=== PATIENT | female | born 1965 | race Caucasian/White ===

== ENCOUNTER 2024-10-17 19:33 | Emergency (ER) | payer MEDICAID ==
[~2024-10-17] VITALS: Ht 162.6 cm; Wt 64.9 kg
[2024-10-17 19:35] VITALS: BP 147/87; PULSE 92; RESP 18; TEMP 98; O2SAT 95
[2024-10-17 19:55] LABS: BASOPHIL % 0.3 % (0.1-1.2); EOSINOPHIL # 0.1 10^3/uL (0.0-0.2); EOSINOPHIL % 0.7 % (0.0-5.0); HEMATOCRIT(ML) 39.4 % (36.0-46.0); HEMOGLOBIN 13.4 g/dL (12.0-15.0); LYMPHOCYTES # 0.57 10^3/uL1 (1.0-4.8); LYMPHOCYTES % 8.5 % (24.0-44.0); MEAN CORP HGB 31.3 pg (26-34); MEAN CORP VOLUME 92.1 fL (78-100); MONOCYTES # 0.5 10^3/uL (0.3-0.8); MONOCYTES % 7.2 % (5.0-12.0); NEUTROPHIL # 5.6 10^3/uL (1.8-7.7); NEUTROPHILS % 83.2 % (41.0-85.0); PLATELET COUNT 165 10^3/uL (150-400); RED BLOOD CELL 4.28 10^6/uL (4.00-5.20); RED CELL DISTRIBUTION WIDTH 12.1 % (11.5-14.5); WHITE BLOOD CELL 6.7 10^3/uL (4.5-11.0)
[2024-10-17 19:56] LABS: +ADD MANUAL DIFF(NO CHRG) NO
[2024-10-17 20:03] LABS: LEUKOCYTE ESTERASE ,URINE NEGATIVE (NEGATIVE); NITRATE,URINE NEGATIVE (NEGATIVE); PH,URINE 5.5 (4.5-8.0); UROBILINOGEN,URINE 0.2 E.U./dL (0.2)
[2024-10-17 20:09] LABS: PROTHROMBIN PROTIME 10.3 SEC (9.3-11.6)
[2024-10-17 20:11] LABS: APPEARANCE,URINE CLEAR; UA COLOR YELLOW
[2024-10-17 20:11] LABS: ALBUMIN(ML) 3.1 g/dL (3.4-5.0); ALBUMIN/GLOBULIN RATIO 0.885; ANION GAP 14.7; BUN/CREATININE RATIO 11.32 (10.0-20.0); CARBON DIOXIDE 23.7 mmol/L (20.0-32); CREATININE SERUM 1.06 mg/dL (0.59-1.40); EST GFR, NON-AA 53.4 (>/=60); POTASSIUM 4.4 mmol/L (3.6-5.2)
[2024-10-17 20:30] VITALS: BP 132/84; PULSE 76; RESP 18; TEMP 98; O2SAT 97
[2024-10-17 21:35] VITALS: BP 135/86; PULSE 80; RESP 18; TEMP 98; O2SAT 96
[2024-10-17 22:28] VITALS: BP 154/90; PULSE 91; RESP 18; TEMP 98; O2SAT 95
== END 2024-10-17 22:58 | disposition short-term general hospital (02) ==
LOC: ER 19:33
DX: N28.89 Other specified disorders of kidney and ureter (principal); J90 Pleural effusion, not elsewhere classified; R74.8 Abnormal levels of other serum enzymes; R60.1 Generalized edema; F12.90 Cannabis use, unspecified, uncomplicated; Z85.3 Personal history of malignant neoplasm of breast
CPT/HCPCS: 36415; 74176; 80053; 81003; 83690; 85025; 85610; 85730; 86677; 99285